=== PATIENT | female | born 1940 | race Caucasian/White ===

== ENCOUNTER 2020-11-03 10:24 | Day surgery (SDC) | payer MEDICARE, BC ==
[~2020-11-03] VITALS: Ht 147.3 cm; Wt 83.3 kg
[2020-11-03] VITALS (11 sets, daily range): BP systolic 114–175; BP diastolic 48–79; PULSE 48–85; TEMP 98.6
[2020-11-03 11:12] LABS: HEMATOCRIT 39.1 % (37.0-47.0); HEMOGLOBIN 13.2 g/dl (12.5-16.0); MEAN CELL VOLUME 89 fl (80.0-100.0); MEAN CORPUSCULAR HEMOGLOBIN 30 pg (27.0-31.0); MEAN CORPUSCULAR HGB CONC 34 g/dl (33.0-37.0); MEAN PLATELET VOLUME 10.9 fl (7.4-10.4); PLATELET COUNT 254 K/mm3 (130-400); RED BLOOD COUNT 4.38 M/mm3 (4.10-5.30); REDCELL DISTRIBUTION WIDTH-CV 13.8 % (11.5-14.5)
[2020-11-03 11:20] LABS: PROTHROMBIN TIME 11.1 SECONDS (9.7-12.8)
[2020-11-03 11:22] LABS: CALCIUM 9.4 mg/dL (8.4-10.2); CREATININE, serum 0.67 (0.52-1.25); POTASSIUM 3.6 mmol/L (3.4-5.0)
[2020-11-03 11:23] LABS: PARTIAL THROMBOPLASTIN TIME 28.6 SECONDS (26.0-37.0)
[2020-11-03] MEDS ORDERED: SYNTHROID 0.0.025 MG PO (11:37)
[2020-11-03] MEDS ORDERED: LIPITOR20 MG PO (11:38)
[2020-11-03] MEDS ORDERED: CALAN120 MG PO (11:39)
[2020-11-03] MEDS ORDERED: HCTZ 25MG TAB25 MG PO (11:39)
[2020-11-03] MEDS ORDERED: FLONASE NASAL S16 GM NS (11:42)
[2020-11-03] MEDS ORDERED: CALTRATE-600 W600 MG PO (11:42)
[2020-11-03] MEDS ORDERED: NYSTATIN POWDER15 GM TOP (11:42)
[2020-11-03] MEDS ORDERED: CENTRUM CHEWAB1 EAC3 PO (11:43)
--- NOTE | 2020-11-03 12:36 | NUR ---
SEE MERGE DOCUMENTATION FOR MEDICATION ADMINISTRATION TIMES AND INTRA/POST PROCEDURE SEDAITON ASSESSMENTS. RIGHT HAND BARBEAU TEST POSITIVE.
--- NOTE | 2020-11-03 13:15 | NUR ---
Pt is back from [facility], bedside report from Bhavesh COX. Pt is awake and alert, pwd, unlabored resps. tr band to rt wrist, cms intact distal. 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 nsr on monitor. call light in reach. lunch ordered. pt aware of activity restriction and poc.
[2020-11-03 13:44] LABS: CHOLESTEROL RISK RATIO 2.7
[2020-11-03] MEDS ORDERED: LIPITOR 40MG TA40 MG PO (14:52)
--- NOTE | 2020-11-03 17:40 | NUR ---
TR band has been deflated and dressing applied to puncture site. There was some bleeding from site when first 2 ml were removed from the band at 1530, air was reinstilled and there was no problem with the site as the TR band was gradually deflated starting at 1600. Site dressed with bandaid, folded 2x2 and coban. cms isintact distal. We reviewed written dc rx and fu instructions together, no questions at time of departure. iv was dc'd with cath intact, dressing applied. Pt has been ambulatory in room with steady gait. to exit at about 1750 via wheelchair.
== END 2020-11-03 19:13 | disposition home or self-care (01) ==
LOC: COL.CAR 10:24
PROVIDERS: Internal Medicine Interventional Cardiology; Nurse Practitioner
DX: I25.10 Atherosclerotic heart disease of native coronary artery without angina pectoris (principal); E11.9 Type 2 diabetes mellitus without complications; I10 Essential (primary) hypertension; E78.5 Hyperlipidemia, unspecified; R09.89 Other specified symptoms and signs involving the circulatory and respiratory systems; Z20.822 Contact with and (suspected) exposure to COVID-19; Z79.899 Other long term (current) drug therapy; Z79.02 Long term (current) use of antithrombotics/antiplatelets; Z79.82 Long term (current) use of aspirin
CPT/HCPCS: C1769; J1644; J2250; J3010; Q9967

== ENCOUNTER 2021-09-23 20:48 | Emergency (ER) | payer MEDICARE, BC ==
[~2021-09-23] VITALS: Ht 147.3 cm; Wt 77.3 kg
[~2021-09-23 20:48] MED LIST: CALAN120 MG PO; CALTRATE-600 W600 MG PO; CENTRUM CHEWAB1 EAC3 PO; FLONASE NASAL S16 GM NS; HCTZ 25MG TAB25 MG PO; LIPITOR 40MG TA40 MG PO; LIPITOR20 MG PO; NYSTATIN POWDER15 GM TOP; SYNTHROID 0.0.025 MG PO
[2021-09-23 20:55] VITALS: TEMP 97.5
[2021-09-23 21:37] LABS: BASO % 0.2 % (0.0-2.0); EOS % 0.2 % (0.0-4.0); GRAN % 85.9 % (42.2-75.2); HEMATOCRIT 38.3 % (37.0-47.0); HEMOGLOBIN 13.4 g/dl (12.5-16.0); LYMPH # 0.4 K/mm3 (1.2-3.4); LYMPH % 6.7 % (20.0-51.0); MEAN CELL VOLUME 86 fl (80.0-100.0); MEAN CORPUSCULAR HEMOGLOBIN 30 pg (27-31); MEAN CORPUSCULAR HGB CONC 35 g/dl (33.0-37.0); MEAN PLATELET VOLUME 10.9 fl (7.4-10.4); MONO # 0.4 K/mm3 (0.1-0.6); MONO % 6.7 % (1.7-9.3); PLATELET COUNT 245 K/mm3 (130-400); RED BLOOD COUNT 4.46 M/mm3 (4.10-5.30); REDCELL DISTRIBUTION WIDTH-CV 13.8 % (11.5-14.5)
[2021-09-23 21:55] LABS: ALANINE AMINOTRANSFERASE 21 U/L (0-55); ALBUMIN 3.8 gm/dL (3.4-4.8); ALKALINE PHOSPHATASE 95 U/L (40-150); ANION GAP 14 mmol/L (7-16); AST,SGOT 21 U/L (5-34); BILIRUBIN,TOTAL 0.9 mg/dL (0.2-1.2); BLOOD UREA NITROGEN 26 mg/dL (10-20); CALCIUM 8.7 mg/dL (8.4-10.2); CARBON DIOXIDE 22 mmol/L (23-31); CHLORIDE 100 mmol/L (98-107); CREATININE, serum 0.67 mg/dL (0.57-1.11); GLUCOSE 169 mg/dL (70-99); LIPASE 17 U/L (8-78); POTASSIUM 3.3 mmol/L (3.5-4.5); SODIUM 136 mmol/L (136-145); TOTAL PROTEIN 6.7 gm/dL (6.2-8.1)
[2021-09-23 22:02] LABS: TROPONIN-I < 0.010 ng/mL (0.00-0.033)
[2021-09-23] MEDS ORDERED: ZOFRAN ODT4 MG PO (23:28)
[2021-09-23 23:45] VITALS: BP 160/65; PULSE 54
== END 2021-09-23 23:46 | disposition home or self-care (01) ==
LOC: COL.ER 20:48
PROVIDERS: Student in an Organized Health Care Education/Training Program
DX: R11.2 Nausea with vomiting, unspecified (principal); E86.0 Dehydration; R53.81 Other malaise; Z28.310 Unvaccinated for COVID-19